=== PATIENT | male | born 1965 | race Two or more races ===

== ENCOUNTER 2023-08-28 17:32 | Emergency (ER) | payer OTHER ==
[~2023-08-28] VITALS: Ht 167.6 cm; Wt 79.0 kg
[2023-08-28 18:22] VITALS: TEMP 98
[2023-08-28 20:00] VITALS: PULSE 92; RESP 17; O2SAT 100
[2023-08-28 21:33] LABS: Basophils # (auto) 0.1 10 ^3/uL (0-0.2); Basophils % (auto) 0.9 % (0.0-2.0); Eosinophils # (auto) 0.4 10 ^3/uL (0-0.8); Eosinophils % (auto) 6.2 % (0.0-7.0); Hematocrit 47.4 % (41.0-53.0); Lymphocytes % (auto) 30.5 % (10.0-50.0); Mean Corpuscular Hemoglobin 29.5 pg (28.0-32.0); Mean Corpuscular Hgb Conc. 33.8 g/dL (32.0-36.0); Mean Corpuscular Volume 87.3 fL (80.0-100.0); Monocytes # (auto) 0.6 10 ^3/uL (0-1.3); Monocytes % (auto) 8.8 % (0.0-12.0); Neutrophils # (auto) 3.5 10 ^3/uL (1.6-8.6); Neutrophils % (auto) 53.6 % (37.0-80.0); Nucleated Red Blood Cells % 0.1 %; Red Blood Cells 5.43 10^6/uL (4.5-5.90); Red Cell Distribution Width 13.1 % (11.8-14.3); White Blood Cell 6.6 10^3/uL (4.4-10.8)
[2023-08-28 22:06] LABS: Alanine Aminotransferase 14 U/L (7-40); Albumin 4.8 g/dL (3.2-4.8); Alkaline Phosphatase 76 U/L (46-116); Anion Gap 8 (5-15); Aspartate Aminotransferase 16 U/L (13-40); Bilirubin, Total 0.7 mg/dL (0.2-1.0); Calcium 9.9 mg/dL (8.5-10.1); Carbon Dioxide 29 mmol/L (20-30); Chloride 104 mmol/L (98-107); Glucose 98 mg/dL (74-106); Sodium 141 mmol/L (136-145)
[2023-08-28] MEDS ORDERED: IOHEXOL 350 MG/ML 100ML IJ ONE (22:07)
[2023-08-28 22:15] LABS: Blood Urea Nitrogen < 5 mg/dL (9-23)
[2023-08-28 23:56] VITALS: BP 111/77; PULSE 99; RESP 16; O2SAT 96
== END 2023-08-29 00:48 | disposition home or self-care (01) ==
LOC: ER 17:32
DX: Z11.1 Encounter for screening for respiratory tuberculosis (principal); R07.89 Other chest pain
CPT/HCPCS: 36415; 71046; 71260; 80053; 85025; 99285; Q9967